=== PATIENT | male | born 1980 | race Caucasian/White ===

== ENCOUNTER 2018-12-24 11:00 | Outpatient (RCR) | payer BC ==
[~2018-12-24 11:00] MED LIST: DIPHENHYDRAMINE HCL INJ 50 MG/ML VIAL ONE
== END 2018-12-25 ==
LOC: PT 11:00
PROVIDERS: ATTEND Orthopaedic Surgery
DX: M75.41 Impingement syndrome of right shoulder (principal); M25.711 Osteophyte, right shoulder; M25.511 Pain in right shoulder; M62.81 Muscle weakness (generalized); R29.3 Abnormal posture
CPT/HCPCS: 97032; 97110 ×7; 97112; 97140 ×3; 97161; J1200

== ENCOUNTER 2019-01-19 15:00 | Outpatient (RCR) | payer BC | END 2019-01-24 | LOC: PT 15:00 | PROVIDERS: ATTEND Orthopaedic Surgery | DX: M75.41 Impingement syndrome of right shoulder (principal) | CPT/HCPCS: 97139 ==

== ENCOUNTER → 2019-02-01 | Outpatient (CLI) | payer BC ==
[2019-02-01 09:28] LABS: BASOPHILS % 0.8 % (0.0-1.0); EOSINOPHILS # (AUTO) 0.1 (0.0-0.4); EOSINOPHILS % 2.6 % (0.0-6.0); HEMATOCRIT 50.1 % (38.2-49.6); HEMOGLOBIN 17.2 g/dL (14.0-18.0); LYMPHOCYTES # (AUTO) 1.6 (1.0-3.2); LYMPHOCYTES % 42.1 % (18.0-39.1); MEAN CORPUSCULAR HEMOGLOBIN 30.7 pg (28-32); MEAN CORPUSCULAR HGB CONC 34.3 g/dL (31-35); MEAN CORPUSCULAR VOLUME 89.3 fL (81-99); MONOCYTES # (AUTO) 0.4 (0.2-0.8); MONOCYTES % 9.5 % (4.4-11.3); NEUTROPHILS # (AUTO) 1.7 (2.1-6.9); NEUTROPHILS % 44.7 % (38.7-80.0); PLATELET COUNT 264 x10e3/uL (140-360); RED BLOOD COUNT 5.61 x10e6/uL (4.3-5.7); RED CELL DISTRIBUTION WIDTH 13.1 % (11.7-14.4)
[2019-02-01 09:50] LABS: ALANINE AMINOTRANSFERASE 139 IU/L (0-55); ALBUMIN/GLOBULIN RATIO 1.1 (0.8-2.0); ALKALINE PHOSPHATASE 67 IU/L (40-150); ANION GAP 11.9 mmol/L (8-16); BLOOD UREA NITROGEN 10 mg/dL (7-26); BUN/CREATININE RATIO 9 (6-25); CALCIUM 9.4 mg/dL (8.4-10.2); CARBON DIOXIDE 27 mmol/L (22-29); CHLORIDE 103 mmol/L (98-107); CREATININE, SERUM 1.13 mg/dL (0.72-1.25); EST GLOMERULAR FILTRATION RATE > 60 ML/MIN (60-); GLUCOSE 98 mg/dL (74-118); POTASSIUM 3.9 mmol/L (3.5-5.1); SODIUM 138 mmol/L (136-145)
== END ==
LOC: LAB 09:12
PROVIDERS: ATTEND Internal Medicine
DX: Z00.00 Encounter for general adult medical examination without abnormal findings (principal); I11.9 Hypertensive heart disease without heart failure; E78.1 Pure hyperglyceridemia; K76.0 Fatty (change of) liver, not elsewhere classified; E78.5 Hyperlipidemia, unspecified
CPT/HCPCS: 36415; 80053; 82044; 82570; 83036; 84443; 85025

== ENCOUNTER → 2019-06-15 | Outpatient (CLI) | payer BC ==
--- NOTE | 2019-06-15 11:20 | Diagnostic Imaging Report ---
MRI of the right shoulder without contrast. History: Shoulder pain. Rotator cuff tear. Decreased range of motion. Pain not responding to conservative management. Comparison: None Technique: Coronal PD FS, sagital PD FS, and axial PD and PD FS. Findings: Rotator cuff: Mild rotator cuff tendinosis without tear, muscle atrophy or retraction. Osseous acromion complex: Type II acromion with mild lateral downsloping. Mild degenerative arthrosis at the acromioclavicular joint. Glenohumeral joint: The labrum is intact. The capsular structures are intact. The articular cartilage surfaces are intact. The humeral head is well-seated in the glenoid fossa. Biceps tendon: The biceps tendon is intact. Other findings: Negative for muscle denervation or osseous fracture. 3.0 cm nonaggressive appearing lobular mass within the marrow space of the proximal humerus best seen on sagittal image 8 and coronal image 15. No aggressive feature or cortical breakthrough is seen. No soft tissue component is seen. This mass has increased signal intensity on the fluid sensitive sequences and is isointense to muscle on the T1-weighted images. This could be due to a interosseous cyst or possibly an enchondroma. Radiographs of the shoulder are recommended for further evaluation. Impression: Mild rotator cuff tendinosis without tear, muscle atrophy or retraction. 3.0 cm nonaggressive appearing lobular mass within the marrow space of the proximal humerus best seen on sagittal image 8 and coronal image 15. No aggressive feature or cortical breakthrough is seen. No soft tissue component is seen. This mass has increased signal intensity on the fluid sensitive sequences and is isointense to muscle on the T1-weighted images. This could be due to a interosseous cyst or possibly an enchondroma. Radiographs of the shoulder are recommended for further evaluation. Signed by: Dr. Aniket Pace M.D. on 06/15/2019 11:17 AM
== END ==
LOC: MRI 06-14 09:08
PROVIDERS: ATTEND Orthopaedic Surgery
DX: S43.421A Sprain of right rotator cuff capsule, initial encounter (principal)

== ENCOUNTER 2019-10-10 23:10 | Emergency (ER) | payer BC ==
[~2019-10-10] VITALS: Ht 182.9 cm; Wt 108.9 kg
[2019-10-10] MEDS ORDERED: TETANUS/DIPHTHERIA TOX ADULT 0.5 ML SYR ONE (23:47)
--- NOTE | 2019-10-11 00:02 | Emergency Department Note ---
History of Present Illnes History of Present Illness Chief Complaint: laceration left 2nd toe History of Present Illness This is a 38 year old male. was doing well prior to this. then pt dropped a vase on the ground, shattered and a piece of glass cut pt left 2nd toe Historian: Patient Arrival Mode: Car History limited by: condition of the patient (normal) Rental Car Deliverer Required: No Onset (how long ago): minute(s) (30) Location: left 2nd toe Quality: sharp Radiation: Denies non-radiation Severity: moderate Onset quality: sudden Duration (how long): hour(s) (0.5) Timing of current episode: constant Progression: unchanged Chronicity: new Context: Denies recent illness, Denies recent surgery, Denies recent immobilization, Denies recent travel, Denies trauma/injury, Denies new medications, Denies hx of DVT/PE, Denies non-compliance w/ medications, Denies other Relieving factors: rest Exacerbating factors: movement Associated symptoms: Reports denies other symptoms Treatments prior to arrival: none Past Medical/Family History Physician Review I have reviewed the patient's past medical and family history. Any updates have been documented here. Past Medical History Recent Fever: No Clinical Suspicion of Infectio: No New/Unexplained Change in Ment: No Social History Smoking Cessation: Never Smoker Alcohol Use: Social Any Illegal Drug Use: No TB Exposure/Symptoms: No Physically hurt or threatened: No Family History Family history of heart diseas: No Other Any Pre-Existing Lines (PICC,: No Is patient up to date on immun: No Review of Systems Review of Systems Constitutional: Reports no symptoms EENTM: Reports no symptoms Cardiovascular: Reports no symptoms Respiratory: Reports no symptoms Gastrointestinal: Reports no symptoms Genitourinary: Reports no symptoms Musculoskeletal: Reports no symptoms Integumentary: Reports as per HPI Neurological: Reports no symptoms Psychological: Reports no symptoms Endocrine: Reports no symptoms Hematological/Lymphatic: Reports no symptoms Physical Exam Physical Exam CONSTITUTIONAL Constitutional: Present well-developed, Present well-nourished HENT HENT: Present normocephalic, Present atraumatic EYES Eyes: Reports conjunctivae normal, Reports EOM normal NECK Neck: Present ROM normal; Absent JVD PULMONARY Pulmonary: Present effort normal, Present breath sounds normal; Absent respiratory distress CARDIOVASCULAR Cardiovascular: Present regular rhythm, Present normal rate GASTROINTESTINAL GENITOURINARY Genitourinary: Present exam deferred SKIN Skin: Present warm, Present other (3 cm linear laceration(no bleeding)// +nvi) MUSCULOSKELETAL Musculoskeletal: Present ROM normal, Present tenderness NEUROLOGICAL Neurological: Present alert, Present oriented x 3 PSYCHOLOGICAL Psychological: Present mood/affect normal Procedures Laceration Laceration: Laceration 1 Site: lower extremity (left 2nd toe digit) Side: left Size (cm): 3 Description: linear, clean Depth: simple, single layer Local anesthesia: lidocaine 2% Amount of anesthesia (mL): 5 Pre-repair: wound exposed, irrigated extensively (with normal saline. and cleaned wound out with hydrogen peroxide), deep structures intact Skin layer closed with: nylon Size (cm): 4-0 Number of sutures: 3 Technique: simple, interrupted Number of sutures: 3 Technique: other Additional comments no complication. +nvi Assessment & Plan Medical Decision Making MDM return in 10 days for suture removal. neosporin and dressing every 12 hours. keep wound dry Assessment & Plan Final Impression: (1) Toe laceration Depart Disposition: HOME, SELF-CARE Medications in the ED Tetanus/ Diphtheria Toxoids 0.5 ml STK-MED ONCE .ROUTE ; Start 10/10/19 at 23:47; Stop 10/10/19 at 23:44; Status DC COLE RICHARD Oct 11, 2019 00:02
[2019-10-11] MEDS ORDERED: BACITRACIN ZINC 0.9GM TP ONE (00:04)
[2019-10-11] MEDS ORDERED: BACITRACIN ZINC 15 GM OINT TOP SCH (00:15)
[2019-10-11] MEDS ORDERED: TETANUS/DIPHTHERIA TOX ADULT 0.5 ML SYR IM ONE (00:15)
== END 2019-10-11 00:05 | disposition home or self-care (01) ==
LOC: FSED 23:27
DX: S91.115A Laceration without foreign body of left lesser toe(s) without damage to nail, initial encounter (principal); W25.XXXA Contact with sharp glass, initial encounter; Y92.008 Other place in unspecified non-institutional (private) residence as the place of occurrence of the external cause; I10 Essential (primary) hypertension
CPT/HCPCS: 90471; 90714; 99282

== ENCOUNTER → 2020-04-23 | Outpatient (CLI) | payer OTHER ==
[~2020-04-23] MED LIST changes: +COVID-19 VACC, MRNA(MODERNA)/PF 100 MCG/0.5 ML VIAL IM ONE; -DIPHENHYDRAMINE HCL INJ 50 MG/ML VIAL ONE
== END ==
LOC: VACCPMC 10:08
DX: Z23 Encounter for immunization (principal); Z20.828 Contact with and (suspected) exposure to other viral communicable diseases

== ENCOUNTER → 2020-12-19 | Outpatient (CLI) | payer OTHER ==
[~2020-12-19] MED LIST changes: +COVID-19 VAC,AD26(JANSSEN)/PF 2.5 ML VIAL IM ONE; -COVID-19 VACC, MRNA(MODERNA)/PF 100 MCG/0.5 ML VIAL IM ONE
== END ==
LOC: VACCPMC 10:51
DX: Z23 Encounter for immunization (principal); Z20.822 Contact with and (suspected) exposure to COVID-19
CPT/HCPCS: 91303

== ENCOUNTER → 2021-06-28 | Outpatient (CLI) | payer BC | LOC: LAB 15:07 | PROVIDERS: ATTEND Internal Medicine | DX: Z20.822 Contact with and (suspected) exposure to COVID-19 (principal) | CPT/HCPCS: U0002 ==